=== PATIENT | male | born 1955 | race African-American/Black ===

== ENCOUNTER 2017-07-11 15:54 | Emergency (ER) | payer OTHER | END 2017-07-11 20:07 | disposition home or self-care (01) | LOC: D.ER 15:54 | DX: R42 Dizziness and giddiness (principal); I10 Essential (primary) hypertension; Z86.73 Personal history of transient ischemic attack (TIA), and cerebral infarction without residual deficits; F17.200 Nicotine dependence, unspecified, uncomplicated ==